=== PATIENT | female | born 1970 | race Hispanic/Latino ===

== ENCOUNTER 2017-11-30 16:34 | Outpatient (CLI) | payer OTHER | END 2017-11-30 16:35 | disposition home or self-care (01) | LOC: BICMAMMO 16:34 | PROVIDERS: ATTEND Physician Assistant | DX: Z12.31 Encounter for screening mammogram for malignant neoplasm of breast (principal); Z80.3 Family history of malignant neoplasm of breast | CPT/HCPCS: 77063; 77067 ==